=== PATIENT | female | born 1985 | race Two or more races ===

== ENCOUNTER 2023-07-29 22:28 | Emergency (ER) | payer MEDICAID, OTHER ==
[~2023-07-29] VITALS: Ht 162.6 cm; Wt 81.8 kg
[2023-07-29 22:40] VITALS: BP 124/77; PULSE 100; RESP 16; O2SAT 97
== END 2023-07-30 05:48 | disposition home or self-care (01) ==
LOC: ER 22:28
DX: M79.89 Other specified soft tissue disorders (principal)
CPT/HCPCS: 93971